=== PATIENT | female | born 1985 | race Caucasian/White ===

== ENCOUNTER 2017-05-18 11:34 | Emergency (ER) | payer OTHER ==
[2017-05-18 11:52] VITALS: PULSE 82; RESP 18; TEMP 98.2; O2SAT 98
[2017-05-18 12:19] LABS: RBC URINE 5 /hpf (0-3); URINE BACTERIA RARE (<OCC); URINE BILIRUBIN NEGATIVE (NEGATIVE); URINE BLOOD NEGATIVE (NEGATIVE); URINE COLOR Yellow (YELLOW); URINE GLUCOSE (UA) NORMAL (Normal); URINE KETONE NEGATIVE (NEGATIVE); URINE LEUKOCYTE ESTERASE NEG Leu/uL (Negative); URINE PROTEIN NEGATIVE (NEGATIVE); URINE UROBILINOGEN NORMAL mg/dL (0.2-1.0); WBC URINE 8 /hpf (0-5)
--- NOTE | 2017-05-18 12:30 | C.PDOC ---
History Of Present Illness 32 yr old female presents to the ER with complaints of dysuria, urgency and frequency for the past 4 days. Patient reports history of UTIs. Denies fever, chills, nausea, vomiting, abdominal pain, vaginal discharge, vaginal bleeding or back pain. Time Seen by Provider: 05/18/17 11:56 Chief Complaint (Nursing): Female Genitourinary History Per: Patient History/Exam Limitations: no limitations Onset/Duration Of Symptoms: Days (4) Current Symptoms Are (Timing): Still Present Past Medical History Reviewed: Historical Data, Nursing Documentation, Vital Signs Vital Signs: Last Vital Signs Temp 98.2 F 05/18/17 11:48 Pulse 82 05/18/17 11:48 Resp 18 05/18/17 11:48 BP Pulse Ox 98 05/18/17 13:29 Family History: States: No Known Family Hx - Social History Hx Tobacco Use: Yes Hx Alcohol Use: Yes Hx Substance Use: No - Immunization History Hx Tetanus Toxoid Vaccination: No Hx Influenza Vaccination: No Hx Pneumococcal Vaccination: No Review Of Systems Except As Marked, All Systems Reviewed And Found Negative. Constitutional: Negative for: Fever, Chills Gastrointestinal: Negative for: Nausea, Vomiting, Abdominal Pain Genitourinary: Positive for: Dysuria, Frequency, Other ((+) Urgency). Negative for: Vaginal Discharge, Vaginal Bleeding Musculoskeletal: Negative for: Back Pain Physical Exam - Physical Exam Appears: Non-toxic, No Acute Distress Skin: Warm, Dry Head: Atraumatic, Normacephalic Eye(s): bilateral: Normal Inspection, EOMI Oral Mucosa: Moist Neck: Normal ROM Chest: Symmetrical, No Tenderness Cardiovascular: Rhythm Regular, No Murmur Respiratory: Normal Breath Sounds, No Rales, No Rhonchi, No Stridor, No Wheezing Gastrointestinal/Abdominal: Normal Exam, Soft, No Tenderness, No Guarding, No Rebound, No Hernia Back: Normal Inspection, No CVA Tenderness Extremity: Normal ROM, No Deformity, No Swelling Neurological/Psych: Oriented x3, Normal Speech Gait: Steady ED Course And Treatment O2 Sat by Pulse Oximetry: 98 (RA) Pulse Ox Interpretation: Normal Medical Decision Making Medical Decision Making: PLAN: * HCG * Urinalysis UA shows WBCs. Patient symptomatic, will treat for UTI. Advise follow up with PCP Disposition Counseled Patient/Family Regarding: Need For Followup, Rx Given - Disposition Referrals: Brent Holman MD [Medical Doctor] - Disposition: HOME/ ROUTINE Disposition Time: 12:29 Condition: STABLE Additional Instructions: Take antibiotic twice daily and be sure to finish taking all of antibiotic. Drink plenty of fluids. If urine culture was performed, call back for results in 2-3 days for results to confirm antibiotic is treating UTI well Prescriptions: Ciprofloxacin [Cipro] 1 tab PO BID #10 tab Instructions: Urinary Tract Infection in Women (DC) Forms: [employer] (Slovenian) - POA Present On Arrival: None - Clinical Impression Clinical Impression: UTI (urinary tract infection) - PA / CLIENT INSIGHTS CONSULTANT / Resident Statement MD/DO has reviewed & agrees with the documentation as recorded. - Scribe Statement The provider has reviewed the documentation as recorded by the Scribe Betsy Arauz All medical record entries made by the Scribe were at my direction and personally dictated by me. I have reviewed the chart and agree that the record accurately reflects my personal performance of the history, physical exam, medical decision making, and the department course for this patient. I have also personally directed, reviewed, and agree with the discharge instructions and disposition.
== END 2017-05-18 12:53 | disposition home or self-care (01) ==
LOC: C.ER 11:34
DX: N39.0 Urinary tract infection, site not specified (principal)

== ENCOUNTER 2017-07-23 14:33 | Emergency (ER) | payer OTHER ==
[2017-07-23 14:46] VITALS: RESP 18; O2SAT 98
[2017-07-23] MEDS ORDERED: Lidocaine 5% Patch TD STA (14:53)
--- NOTE | 2017-07-23 14:53 | C.PDOC ---
History Of Present Illness 32 year old female presents to the ED for evaluation of right-sided mid-back pain which began yesterday. Patient states her pain is localized and worse with movement and when breathing out. Patient denies trauma or any other associated symptoms. Patient denies history of back pain. She has not taken any pain medications to manage her symptoms. R MID BACK PAIN SINCE YEST. LOCALIZED WORSE W MOVEMENT, BREATHING OUT. NO TRAUMA , OTHER ASSOC SX. DENIES HO CHRONIC BACK PAIN. NO PAIN MEDS TRIED EXAM MILD DIST NONTOXIC BACK REPRODUC R MID BACK PAIN W DEEP EXPIRATION. LIMITED ROM. ATRAUM. NO FOCAL TEND. NO SPINAL TEND NO CVAT REMAINDER NEG Time Seen by Provider: 07/23/17 14:48 Chief Complaint (Nursing): Back Pain History Per: Patient History/Exam Limitations: no limitations Onset/Duration Of Symptoms: Hrs Current Symptoms Are (Timing): Still Present Quality Of Discomfort: "Pain" Previous Symptoms: Back Pain Associated Symptoms: denies: Incontinence, New Weakness, New Numbness Exacerbating Factor(s): Movement, Other (expiration ) Additional History Per: Patient Past Medical History Reviewed: Historical Data, Nursing Documentation, Vital Signs Vital Signs: Last Vital Signs Temp 98.2 F 07/23/17 16:50 Pulse 78 07/23/17 16:50 Resp 18 07/23/17 16:50 BP 100/62 07/23/17 16:50 Pulse Ox 98 07/23/17 16:50 - Medical History PMH: No Chronic Diseases Surgical History: No Surg Hx Family History: States: Unknown Family Hx - Social History Hx Tobacco Use: Yes Hx Alcohol Use: Yes Hx Substance Use: No - Immunization History Hx Tetanus Toxoid Vaccination: No Hx Influenza Vaccination: No Hx Pneumococcal Vaccination: No Review Of Systems Musculoskeletal: Positive for: Back Pain (right-sided, mid-back ) Physical Exam - Physical Exam Appears: Non-toxic, Other (in mild distress) Skin: Normal Color, Warm, Dry Head: Atraumatic, Normacephalic Eye(s): bilateral: Normal Inspection Oral Mucosa: Moist Neck: Supple Chest: Symmetrical, No Deformity, No Tenderness Cardiovascular: Rhythm Regular Respiratory: Normal Breath Sounds Back: No CVA Tenderness, No Vertebral Tenderness, Decreased ROM, Other ( reproducible right mid-back pain with deep expiration. atraumatic. no focal tenderness ) Extremity: Normal ROM, Capillary Refill (less than 2 seconds ) Neurological/Psych: Oriented x3, Normal Speech, Normal Cognition Gait: Steady ED Course And Treatment O2 Sat by Pulse Oximetry: 98 (on RA) Pulse Ox Interpretation: Normal - Radiology CXR: Interpreted by Me CXR Interpretation: Yes: No Acute Disease Progress Note: CXR and UA ordered and reviewed. Flexeril PO, Lidoderm TD, Percocet PO, Toradol IM, and Zofran PO administered. Progress - Re-Evaluation Re-evaluation Note: 07/23/17 16:00 PERSIST PAIN. EXAM UNCH. UA PENDING 07/23/17 16:36 SP PERCOCET FEELS BETTER - Data Reviewed Data Reviewed: Lab, Diagnostic imaging Disposition Counseled Patient/Family Regarding: Studies Performed, Diagnosis, Need For Followup, Rx Given - Disposition Referrals: YOUR,PMD [Other] Disposition: HOME/ ROUTINE Disposition Time: 16:36 Condition: IMPROVED Prescriptions: Ibuprofen [Motrin] 600 mg PO Q6 #30 tab Metoclopramide [Reglan] 1 tab PO TID PRN #25 tab PRN Reason: Nausea/Vomiting oxyCODONE/Acetaminophen [Percocet 5/325 mg Tab] 1 tab PO QID PRN #10 tab PRN Reason: Pain Instructions: Back Pain (ED) Forms: [facility] [employer] (Telugu), Work Excuse - Clinical Impression Clinical Impression: Back pain - Scribe Statement The provider has reviewed the documentation as recorded by the Scribe (Gloria Maria) Provider Attestation: All medical record entries made by the Scribe were at my direction and personally dictated by me. I have reviewed the chart and agree that the record accurately reflects my personal performance of the history, physical exam, medical decision making, and the department course for this patient. I have also personally directed, reviewed, and agree with the discharge instructions and disposition.
[2017-07-23] MEDS ORDERED: Lidocaine 5% Patch TD ONE (15:10)
--- NOTE | 2017-07-23 15:37 | RAD ---
HISTORY: Chest and back COMPARISON: No prior. TECHNIQUE: Chest PA and lateral FINDINGS: LUNGS: No active pulmonary disease. Bibasilar breast and nipple shadows. PLEURA: No significant pleural effusion identified. No pneumothorax apparent. CARDIOVASCULAR: Normal. OSSEOUS STRUCTURES: No significant abnormalities. VISUALIZED UPPER ABDOMEN: Normal. OTHER FINDINGS: None. IMPRESSION: No active disease.
[2017-07-23] MEDS ORDERED: Oxycodone/Acetaminophen 5/325 mg Tab PO STA (16:00)
[2017-07-23] MEDS ORDERED: Oxycodone/Acetaminophen 5/325 mg Tab ONE (16:05)
[2017-07-23 16:19] LABS: RBC URINE 3 /hpf (0-3); URINE BACTERIA OCC (<OCC); URINE BILIRUBIN NEGATIVE (NEGATIVE); URINE BLOOD NEGATIVE (NEGATIVE); URINE COLOR Yellow (YELLOW); URINE GLUCOSE (UA) NORMAL (Normal); URINE KETONE NEGATIVE (NEGATIVE); URINE LEUKOCYTE ESTERASE NEG Leu/uL (Negative); URINE PROTEIN NEGATIVE (NEGATIVE); URINE UROBILINOGEN NORMAL mg/dL (0.2-1.0); WBC URINE 1 /hpf (0-5)
[2017-07-23 16:51] VITALS: BP 100/62; PULSE 78; TEMP 98.2
== END 2017-07-23 16:52 | disposition home or self-care (01) ==
LOC: C.ER 14:33
DX: M54.89 Other dorsalgia (principal)
CPT/HCPCS: 71020; 81001; 96372; 99285; J1885

== ENCOUNTER 2017-12-15 00:25 | Emergency (ER) | payer SELFPAY ==
[2017-12-15 00:41] VITALS: RESP 20
[2017-12-15 01:12] LABS: HCG,QUALITATIVE URINE NEGATIVE (NEGATIVE); SQUAMOUS EPITHIAL 1 /hpf (0-5); URINE BILIRUBIN NEGATIVE (NEGATIVE); URINE BLOOD NEGATIVE (NEGATIVE); URINE CLARITY Clear (Clear); URINE COLOR Yellow (YELLOW); URINE GLUCOSE (UA) NORMAL (Normal); URINE LEUKOCYTE ESTERASE NEG Leu/uL (Negative); URINE PROTEIN NEGATIVE (NEGATIVE); URINE UROBILINOGEN NORMAL mg/dL (0.2-1.0)
[2017-12-15] MEDS ORDERED: Sodium Chloride 0.9% 1,000 ML IV ONE (01:18)
[2017-12-15] MEDS ORDERED: Sodium Chloride 0.9% 1,000 ML ONE (01:24)
[2017-12-15 01:42] LABS: BASO % 0.4 % (0.0-2.0); EOS # 0.4 K/uL (0.0-0.7); EOS % 3.5 % (0.0-4.0); HEMOGLOBIN 13.9 g/dL (11.0-16.0); LYMPH # 4.5 K/uL (1.0-4.3); LYMPH % 40.7 % (20.0-40.0); MEAN CELL VOLUME 91.2 fL (81.0-99.0); MEAN CORPUSCULAR HEMOGLOBIN 31.1 pg (27.0-31.0); MEAN CORPUSCULAR HGB CONC 34.1 g/dL (33.0-37.0); MEAN PLATELET VOLUME 7.7 fL (7.2-11.7); MONO # 0.9 K/uL (0.0-0.8); MONO % 8.4 % (0.0-10.0); NEUT # 5.2 K/uL (1.8-7.0); RBC 4.47 Mil/uL (3.80-5.20); RED CELL DISTRIBUTION WIDTH 14.1 % (11.5-14.5)
[2017-12-15 01:57] LABS: ALB/GLOB RATIO 1.2 (1.0-2.1); ALT/SGPT 21 U/L (9-52); AST/SGOT 25 U/L (14-36); BLOOD UREA NITROGEN 10 mg/dL (7-17); CALCIUM 8.9 mg/dl (8.6-10.4); GFR AFRICAN-AMERICAN > 60; GFR NON-AFRICAN AMERICAN > 60; LIPASE 80 U/L (23-300)
--- NOTE | 2017-12-15 03:02 | C.PDOC ---
History Of Present Illness 32 year old female presents to the ER with a complaint of epigastric pain intermittently for the past 2 weeks, associated with dysuria that began today. Patient reports a Hx of prior UTI and PUD. Denies vomiting, diarrhea, or fever. Time Seen by Provider: 12/15/17 01:11 Chief Complaint (Nursing): Abdominal Pain History Per: Patient History/Exam Limitations: no limitations Onset/Duration Of Symptoms: Days, Intermittent Episodes Current Symptoms Are (Timing): Still Present Location Of Pain/Discomfort: Epigastric Radiation Of Pain To:: None Quality Of Discomfort: Unable To Describe Associated Symptoms: Urinary Symptoms (Dysuria). denies: Fever, Vomiting, Diarrhea Exacerbating Factors: None Alleviating Factors: None Recent travel outside of the [place]: No Abnormal Vaginal Bleeding: No Past Medical History Reviewed: Historical Data, Nursing Documentation, Vital Signs Vital Signs: Last Vital Signs Temp 97.7 F 12/15/17 03:06 Pulse 81 12/15/17 03:06 Resp 20 12/15/17 03:06 BP 142/96 H 12/15/17 03:06 Pulse Ox 100 12/15/17 03:06 Family History: States: Unknown Family Hx - Social History Hx Tobacco Use: Yes Hx Alcohol Use: Yes Hx Substance Use: No - Immunization History Hx Tetanus Toxoid Vaccination: No Hx Influenza Vaccination: No Hx Pneumococcal Vaccination: No Review Of Systems Except As Marked, All Systems Reviewed And Found Negative. Gastrointestinal: Positive for: Abdominal Pain Genitourinary: Positive for: Dysuria Physical Exam - Physical Exam Appears: Non-toxic, Other (Mild pain) Skin: Normal Color, Warm, Dry Head: Atraumatic, Normacephalic Eye(s): bilateral: Normal Inspection Oral Mucosa: Moist Chest: Symmetrical, No Tenderness Cardiovascular: Rhythm Regular Respiratory: Normal Breath Sounds, No Rales, No Rhonchi, No Wheezing Gastrointestinal/Abdominal: Soft, Tenderness (Mild epigastric), No Guarding, No Rebound, Other (Negative Mcburney's, Negative Nicole's) Neurological/Psych: Oriented x3, Normal Speech ED Course And Treatment - Laboratory Results Result Diagrams: 12/15/17 01:38 12/15/17 01:38 O2 Sat by Pulse Oximetry: 99 (Room air) Pulse Ox Interpretation: Normal Progress Note: Blood work and urinalysis ordered. IV pepcid and toradol administered. Disposition Counseled Patient/Family Regarding: Studies Performed, Diagnosis, Need For Followup, Rx Given - Disposition Referrals: Moses Veliz MD [Staff Provider] - Brent Holman MD [Medical Doctor] - Disposition: HOME/ ROUTINE Disposition Time: 03:00 Condition: STABLE Additional Instructions: FOLLOW UP WITH [facility]ST[facility] WITHIN 1 WEEK USE MEDICATION DAILY RETURN TO ER IF SYMPTOMS WORSEN AVOID SPICY OR ACIDIC FOODS Prescriptions: Pantoprazole [Protonix EC Tab] 20 mg PO DAILY #30 ect Forms: [employer] (Qatari), General Discharge Instructions Print Language: URDU - POA Present On Arrival: None - Clinical Impression Clinical Impression: Epigastric abdominal pain - Scribe Statement The provider has reviewed the documentation as recorded by the Scribsergio Coyle All medical record entries made by the Scribe were at my direction and personally dictated by me. I have reviewed the chart and agree that the record accurately reflects my personal performance of the history, physical exam, medical decision making, and the department course for this patient. I have also personally directed, reviewed, and agree with the discharge instructions and disposition.
[2017-12-15 03:07] VITALS: BP 142/96; PULSE 81; TEMP 97.7
[2017-12-15 06:27] VITALS: O2SAT 99
== END 2017-12-15 03:09 | disposition home or self-care (01) ==
LOC: C.ER 00:25
DX: R10.13 Epigastric pain (principal)
CPT/HCPCS: 80053; 81001; 83690; 84703; 85025; 96374; 96375; 99285; J1885; J7040

== ENCOUNTER 2018-12-07 21:13 | Emergency (ER) | payer OTHER ==
--- NOTE | 2018-12-07 22:29 | C.PDOC ---
History Of Present Illness 33 year old female presents to the ED c/o worsening SOB, CP, dizziness for the past 1 week. Patient reports initial onset of symptoms after exercising and standing up from laying. Patient reports symptoms this time started after normal activity and light exertion. Patient reports symptoms improved. Patient denies asthma history, smoking, fever, chills, palpitations, rash, headache, weakness, numbness. WORSENING SOB, CP, DIZZY X 1 WEEK. INITIAL ONSET AFTER EXCISING AND STOOD UP FROM LAYING. NOW ONSET DURING NORMAL ACTIVITY AND LIGHT EXERTION. DENIES ASTHMA. CURRENTLY IMPROVED. NEG SMOKER EXAM NEG <Agnes Lind - Last Filed: 12/07/18 23:51> History Per: Patient History/Exam Limitations: no limitations Onset/Duration Of Symptoms: Days Current Symptoms Are (Timing): Better Initiating Event: Exercising/Sports Quality: Tightness Exacerbating Factor(s): Exertion Current Respiratory Medications: See Home Med List Recent travel outside of the [place]: No Additional History Per: Patient <Agnes Lind - Last Filed: 12/07/18 23:51> <Heber Zhao - Last Filed: 12/08/18 02:05> Time Seen by Provider: 12/07/18 21:36 Chief Complaint (Nursing): Chest Pain Past Medical History Reviewed: Historical Data, Nursing Documentation, Vital Signs Vital Signs: Last Vital Signs Temp 98.1 F 12/07/18 21:17 Pulse 75 12/07/18 21:17 Resp 20 12/07/18 21:17 BP 109/75 12/07/18 21:17 Pulse Ox 96 12/07/18 21:17 - Medical History PMH: No Chronic Diseases Surgical History: No Surg Hx Family History: States: Unknown Family Hx - Social History Hx Tobacco Use: Yes Hx Alcohol Use: No Hx Substance Use: No - Immunization History Hx Tetanus Toxoid Vaccination: No Hx Influenza Vaccination: No Hx Pneumococcal Vaccination: No <Agnes Lind - Last Filed: 12/07/18 23:51> Vital Signs: Last Vital Signs Temp 98.1 F 12/07/18 21:17 Pulse 86 12/07/18 21:30 Resp 20 12/07/18 21:30 BP 109/75 12/07/18 21:17 Pulse Ox 96 12/07/18 23:51 <Heber Zhao - Last Filed: 12/08/18 02:05> Review Of Systems Constitutional: Negative for: Fever, Chills Cardiovascular: Positive for: Chest Pain. Negative for: Palpitations Respiratory: Positive for: Shortness of Breath. Negative for: Cough Gastrointestinal: Negative for: Nausea, Vomiting, Abdominal Pain Neurological: Positive for: Dizziness. Negative for: Weakness, Numbness, Headache <Agnes Lidn Last Filed: 12/07/18 23:51> Physical Exam - Physical Exam Appears: Non-toxic, No Acute Distress Skin: Normal Color, Warm, Dry Head: Atraumatic, Normacephalic Eye(s): bilateral: Normal Inspection Oral Mucosa: Moist Neck: Normal ROM, Supple Chest: Symmetrical Cardiovascular: Rhythm Regular Respiratory: Normal Breath Sounds, No Rales, No Rhonchi, No Wheezing Gastrointestinal/Abdominal: Soft, No Tenderness Extremity: Normal ROM, No Tenderness, No Swelling Neurological/Psych: Oriented x3, Normal Speech, Normal Cognition Gait: Steady <Agnes Lidn Filed: 12/07/18 23:51> ED Course And Treatment - Laboratory Results Result Diagrams: 12/07/18 23:05 12/07/18 23:05 ECG: Interpreted By Oh ECG Rhythm: Sinus Rhythm ECG Interpretation: Normal Rate From EC O2 Sat by Pulse Oximetry: 96 (ON RA) Pulse Ox Interpretation: Normal - Radiology CXR: Interpreted by Oh CXR Interpretation: Yes: No Acute Disease <Agnes Lind Last Filed: 12/07/18 23:51> - Laboratory Results Result Diagrams: 12/07/18 23:05 12/07/18 23:05 Lab Results: D-Dimer, Quantitative < 200 ng/mlDDU (0-243) 12/08/18 00:44 Troponin I < 0.0120 ng/mL (0.00-0.120) 12/07/18 23:05 Total Bilirubin 0.3 mg/dL (0.2-1.3) 12/07/18 23:05 AST 22 U/L (14-36) 12/07/18 23:05 ALT 16 U/L (9-52) 12/07/18 23:05 Alkaline Phosphatase 64 U/L (38-126) 12/07/18 23:05 Total Protein 6.8 g/dL (6.3-8.3) 12/07/18 23:05 Albumin 4.2 g/dL (3.5-5.0) 12/07/18 23:05 Globulin 2.6 gm/dL (2.2-3.9) 12/07/18 23:05 Albumin/Globulin Ratio 1.6 (1.0-2.1) 12/07/18 23:05 <Heber Zhao - Last Filed: 12/08/18 02:05> Medical Decision Making Medical Decision Making: Plan: * EKG * Labs * CXR <DiogoAgnes - Last Filed: 12/07/18 23:51> Disposition Counseled Patient/Family Regarding: Studies Performed, Diagnosis - Disposition Disposition Time: 23:51 <Agnes Lind - Filed: 12/07/18 23:51> <Heber Zhao - Last Filed: 12/08/18 02:05> - Disposition Disposition: HOME/ ROUTINE Condition: STABLE Instructions: Shortness of Breath (Dyspnea) (DC), Chest Pain Forms: [employer] (Albanian) - Clinical Impression Clinical Impression: Chest pain, Dyspnea - Scribe Statement The provider has reviewed the documentation as recorded by the Scribe Dominic Keene All medical record entries made by the Scribe were at my direction and p ersonally dictated by me. I have reviewed the chart and agree that the record accurately reflects my personal performance of the history, physical exam, medical decision making, and the department course for this patient. I have also personally directed, reviewed, and agree with the discharge instructions and disposition. <Agnes Lind - Last Filed: 12/07/18 23:51> Physician Patient Turnover Patient Signed Over To: Heber Zhao Handoff Comments: FU DIMER, DISPO <Agnes Lind - Last Filed: 12/07/18 23:51>
[2018-12-07 23:10] LABS: BASO # 0.1 K/uL (0.0-0.2); BASO % 0.7 % (0.0-2.0); EOS # 0.3 K/uL (0.0-0.7); EOS % 3.6 % (0.0-4.0); HEMOGLOBIN 13.2 g/dL (11.0-16.0); LYMPH % 44.7 % (20.0-40.0); MEAN CORPUSCULAR HEMOGLOBIN 31.4 pg (27.0-31.0); MEAN CORPUSCULAR HGB CONC 33.7 g/dL (33.0-37.0); MEAN PLATELET VOLUME 7.8 fL (7.2-11.7); MONO # 0.8 K/uL (0.0-0.8); MONO % 8.6 % (0.0-10.0); NEUT # 3.8 K/uL (1.8-7.0); NEUT % 42.4 % (50.0-75.0); NRBC % 0.1 % (0.0-2.0); RBC 4.2 Mil/uL (3.80-5.20); RED CELL DISTRIBUTION WIDTH 13.7 % (11.5-14.5); WHITE BLOOD COUNT 8.9 K/uL (4.8-10.8)
[2018-12-07 23:14] LABS: MEAN CELL VOLUME 93.2 fL (81.0-99.0)
[2018-12-07 23:26] LABS: ALB/GLOB RATIO 1.6 (1.0-2.1); ALBUMIN 4.2 g/dL (3.5-5.0); ALT/SGPT 16 U/L (9-52); AST/SGOT 22 U/L (14-36); BLOOD UREA NITROGEN 11 mg/dL (7-17); CALCIUM 9.5 mg/dl (8.6-10.4); GFR NON-AFRICAN AMERICAN 58
[2018-12-08 02:28] VITALS: BP 128/76; PULSE 84; RESP 16; TEMP 98.3; O2SAT 97
--- NOTE | 2018-12-08 11:21 | RAD ---
Date of service: 12/07/2018 HISTORY: SOB COMPARISON: Comparison is made with 07/23/2017 TECHNIQUE: Chest PA and lateral views FINDINGS: LUNGS: No active pulmonary disease. PLEURA: No significant pleural effusion identified. No pneumothorax apparent. CARDIOVASCULAR: No aortic atherosclerotic calcification present. Normal cardiac size. No pulmonary vascular congestion. OSSEOUS STRUCTURES: No significant abnormalities. VISUALIZED UPPER ABDOMEN: Normal. OTHER FINDINGS: None. IMPRESSION: No active disease.
== END 2018-12-08 01:55 | disposition home or self-care (01) ==
LOC: C.ER 21:13
DX: R07.9 Chest pain, unspecified (principal); R06.00 Dyspnea, unspecified